=== PATIENT | female | born 1965 | race Caucasian/White ===

== ENCOUNTER 2018-01-18 12:43 | Emergency (ER) | payer OTHER ==
[~2018-01-18] VITALS: Ht 160 cm; Wt 88.5 kg
[2018-01-18] MEDS ORDERED: Cleocin HCl300 MG PO (13:03)
== END 2018-01-18 13:04 | disposition home or self-care (01) ==
LOC: ER 12:43
DX: K02.9 Dental caries, unspecified (principal); F17.200 Nicotine dependence, unspecified, uncomplicated
CPT/HCPCS: 99282

== ENCOUNTER → 2019-03-12 | Outpatient (CLI) | payer OTHER ==
[~2019-03-12] MED LIST: Cleocin HCl300 MG PO
[2019-03-12 16:08] LABS: Source, Urine Clean Catch
[2019-03-12 16:43] LABS: Bilirubin, Urine Neg (Neg); Blood, Urine 1+ (Neg); Glucose Qualitative, Urine Neg (Neg); Ketones, Urine Neg (Neg); Leukocyte Esterase, Urine 3+ (Neg); Nitrite, Urine Neg (Neg); Protein, Urine Neg (Neg); Specific Gravity, Urine 1.005 (1.003-1.022); Urobilinogen, Urine NORM (Normal)
[2019-03-12 16:56] LABS: Appearance, Urine Clear (Clear); Color, Urine Yellow (P-Yellow)
[2019-03-12 17:02] LABS: Squamous Epithelial Cells Few /hpf (Few)
[2019-03-12 17:03] LABS: Bacteria Few /hpf
== END | disposition home or self-care (01) ==
LOC: LAB 16:05 → LAB SHORT 16:05
PROVIDERS: Nurse Practitioner Family
DX: N39.0 Urinary tract infection, site not specified (principal)
CPT/HCPCS: 81001; 87086

== ENCOUNTER → 2019-05-12 | Outpatient (CLI) | payer OTHER | END | disposition home or self-care (01) | LOC: LAB SHORT 18:38 → LAB 18:38 | DX: N39.0 Urinary tract infection, site not specified (principal) | CPT/HCPCS: 87086 ==

== ENCOUNTER 2019-05-19 15:00 | Emergency (ER) | payer OTHER ==
[~2019-05-19] VITALS: Ht 160 cm; Wt 95.9 kg
[2019-05-19 16:13] LABS: Source, Urine Clean Catch
[2019-05-19 16:16] LABS: Bilirubin, Urine Neg (Neg); Blood, Urine 1+ (Neg); Glucose Qualitative, Urine Neg (Neg); Ketones, Urine Neg (Neg); Leukocyte Esterase, Urine 2+ (Neg); Nitrite, Urine Neg (Neg); Protein, Urine Neg (Neg); Urobilinogen, Urine NORM (Normal)
[2019-05-19 16:24] LABS: BASOPHILS ABSOLUTE AUTO 0.05 K/mm3 (0.00-0.23); BASOPHILS PERCENT AUTO 0 % (0-2); EOSINOPHILS ABSOLUTE AUTO 0.19 K/mm3 (0.00-0.68); EOSINOPHILS PERCENT AUTO 2 % (0-6); Hematocrit 40.7 % (33.0-51.0); Hemoglobin 13.3 g/dL (11.5-16.0); IMMATURE GRAN ABSOLUTE AUTO 0.04 K/mm3 (0.00-0.10); IMMATURE GRAN PERCENT AUTO 0 % (0-1); LYMPHOCYTES ABSOLUTE AUTO 3.86 K/mm3 (0.84-5.20); LYMPHOCYTES PERCENT AUTO 34 % (21-46); MONOCYTES ABSOLUTE AUTO 0.68 K/mm3 (0.16-1.47); MONOCYTES PERCENT AUTO 6 % (4-13); Mean Corpuscular HGB 30.2 pg (26.0-34.0); Mean Corpuscular HGB Conc 32.7 g/dL (31.5-36.5); Mean Corpuscular Volume 93 fL (80-100); Mean Platelet Volume 9.4 fL (9.1-12.4); NEUTROPHILS PERCENT AUTO 57 % (41-73); Platelet Count 399 K/mm3 (150-400); RDW Coefficient Variation 11.7 % (11.7-14.2); RDW Standard Deviation 39.7 fL (35.1-46.3); White Blood Cell Count 11.32 K/mm3 (4.00-11.30)
[2019-05-19 16:27] LABS: Appearance, Urine Clear (Clear); Color, Urine Yellow (P-Yellow)
[2019-05-19 16:32] LABS: Bacteria Few /hpf; Red Blood Cells, Urine 0-2 /hpf (0-2); Squamous Epithelial Cells Few /hpf (Few)
[2019-05-19 16:42] LABS: Alanine Aminotransfer (ALT/SGP 27 U/L (12-78); Albumin, Blood 3.2 g/dL (3.4-5.0); Albumin/Globulin Ratio 0.8 (0.8-1.8); Alk Phos 73 U/L (50-136); Anion Gap 7 mmol/L (6-16); Aspartate Aminotrans (AST/SGOT 11 U/L (12-37); Bilirubin, Total 0.2 mg/dL (0.1-1.0); Blood Urea Nitrogen 12 mg/dL (8-24); Bun/Creatinine Ratio 19.1 (12.0-20.0); CO2, Blood 26 mmol/L (21-32); Chloride, Blood 108 mmol/L (98-108); Creatinine, Blood 0.63 mg/dL (0.40-1.00); Glomerular Filtration Rate >60 (60-); Glucose, Blood 120 mg/dL (70-99); Potassium, Blood 3.5 mmol/L (3.5-5.5); Sodium, Blood 141 mmol/L (136-145); Total Protein, Blood 7.2 g/dL (6.4-8.2)
[2019-05-19] MEDS ORDERED: Flagyl500 MG PO (20:35)
[2019-05-19] MEDS ORDERED: Cipro500 MG PO (20:35)
[2019-05-19] MEDS ORDERED: ONDA4ODT MM (20:35)
== END 2019-05-19 20:46 | disposition home or self-care (01) ==
LOC: ER 15:00
PROVIDERS: Physician Assistant
DX: K57.32 Diverticulitis of large intestine without perforation or abscess without bleeding (principal); R91.1 Solitary pulmonary nodule; I10 Essential (primary) hypertension; F17.210 Nicotine dependence, cigarettes, uncomplicated
CPT/HCPCS: 36415; 74176; 80053; 81001; 83690; 85025; 87086; 96360; 99284-25; A9270-GY; J7030

== ENCOUNTER → 2019-05-20 | Outpatient (CLI) | payer OTHER ==
[~2019-05-20] MED LIST changes: +Cipro500 MG PO; +Flagyl500 MG PO; +ONDA4ODT MM
== END | disposition home or self-care (01) ==
LOC: LAB 08:41 → LAB SHORT 08:41
DX: R19.7 Diarrhea, unspecified (principal)
CPT/HCPCS: 87493

== ENCOUNTER 2019-06-18 13:52 | Inpatient (IN) | payer OTHER ==
[~2019-06-18] VITALS: Ht 162.6 cm; Wt 88.2 kg
[2019-06-18 14:44] LABS: Source, Urine Clean Catch
[2019-06-18 14:49] LABS: BASOPHILS ABSOLUTE AUTO 0.05 K/mm3 (0.00-0.23); BASOPHILS PERCENT AUTO 1 % (0-2); EOSINOPHILS ABSOLUTE AUTO 0.17 K/mm3 (0.00-0.68); EOSINOPHILS PERCENT AUTO 2 % (0-6); Hematocrit 42.4 % (33.0-51.0); Hemoglobin 13.9 g/dL (11.5-16.0); IMMATURE GRAN ABSOLUTE AUTO 0.04 K/mm3 (0.00-0.10); IMMATURE GRAN PERCENT AUTO 0 % (0-1); LYMPHOCYTES ABSOLUTE AUTO 3.04 K/mm3 (0.84-5.20); LYMPHOCYTES PERCENT AUTO 31 % (21-46); MONOCYTES ABSOLUTE AUTO 0.66 K/mm3 (0.16-1.47); MONOCYTES PERCENT AUTO 7 % (4-13); Mean Corpuscular HGB 29.8 pg (26.0-34.0); Mean Corpuscular HGB Conc 32.8 g/dL (31.5-36.5); Mean Corpuscular Volume 91 fL (80-100); Mean Platelet Volume 9.3 fL (9.1-12.4); NEUTROPHILS ABSOLUTE AUTO 5.93 K/mm3 (1.96-9.15); NEUTROPHILS PERCENT AUTO 60 % (41-73); Platelet Count 394 K/mm3 (150-400); RDW Coefficient Variation 11.9 % (11.7-14.2); RDW Standard Deviation 39.4 fL (35.1-46.3); Red Blood Cell Count 4.67 M/mm3 (3.80-5.20); White Blood Cell Count 9.89 K/mm3 (4.00-11.30)
[2019-06-18 14:52] LABS: Bilirubin, Urine Neg (Neg); Blood, Urine 1+ (Neg); Glucose Qualitative, Urine Neg (Neg); Ketones, Urine Neg (Neg); Leukocyte Esterase, Urine Neg (Neg); Nitrite, Urine Neg (Neg); Protein, Urine Neg (Neg); Specific Gravity, Urine 1.005 (1.003-1.022); Urobilinogen, Urine NORM (Normal)
[2019-06-18 14:55] LABS: Appearance, Urine Clear (Clear); Color, Urine Yellow (P-Yellow)
[2019-06-18 15:08] LABS: Alanine Aminotransfer (ALT/SGP 30 U/L (12-78); Albumin, Blood 3.5 g/dL (3.4-5.0); Albumin/Globulin Ratio 0.9 (0.8-1.8); Alk Phos 79 U/L (50-136); Anion Gap 6 mmol/L (6-16); Aspartate Aminotrans (AST/SGOT 22 U/L (12-37); Bilirubin, Total 0.4 mg/dL (0.1-1.0); Blood Urea Nitrogen 8 mg/dL (8-24); CO2, Blood 26 mmol/L (21-32); Calcium, Blood 9.2 mg/dL (8.5-10.1); Chloride, Blood 106 mmol/L (98-108); Creatinine, Blood 0.57 mg/dL (0.40-1.00); Globulin, Blood 4.1 g/dL (2.2-4.0); Glomerular Filtration Rate >60 (60-); Glucose, Blood 90 mg/dL (70-99); Potassium, Blood 3.7 mmol/L (3.5-5.5); Sodium, Blood 138 mmol/L (136-145); Total Protein, Blood 7.6 g/dL (6.4-8.2)
[2019-06-18 15:08] LABS: Bacteria Few /hpf; Red Blood Cells, Urine 0-2 /hpf (0-2); Squamous Epithelial Cells Few /hpf (Few); White Blood Cells, Urine Not Seen /hpf (0-5)
--- NOTE | 2019-06-18 19:18 | NUR ---
ADMISSION: REPORT RECEIVED FROM ED RN CATHIE. PT TO UNIT AT 1735. PT WALKED FROM RERIE TO BED. UPON ASSESSMENT PT IS IN NO VISABLE DISTRESS, VSS,A/O. REPORTS "SOME PAIN" WILL MONITOR.
[2019-06-19 04:40] LABS: BASOPHILS ABSOLUTE AUTO 0.05 K/mm3 (0.00-0.23); BASOPHILS PERCENT AUTO 1 % (0-2); EOSINOPHILS ABSOLUTE AUTO 0.18 K/mm3 (0.00-0.68); EOSINOPHILS PERCENT AUTO 3 % (0-6); Hematocrit 41.2 % (33.0-51.0); Hemoglobin 13.5 g/dL (11.5-16.0); IMMATURE GRAN ABSOLUTE AUTO 0.02 K/mm3 (0.00-0.10); IMMATURE GRAN PERCENT AUTO 0 % (0-1); LYMPHOCYTES ABSOLUTE AUTO 2.52 K/mm3 (0.84-5.20); LYMPHOCYTES PERCENT AUTO 35 % (21-46); MONOCYTES ABSOLUTE AUTO 0.44 K/mm3 (0.16-1.47); MONOCYTES PERCENT AUTO 6 % (4-13); Mean Corpuscular HGB 29.8 pg (26.0-34.0); Mean Corpuscular HGB Conc 32.8 g/dL (31.5-36.5); Mean Corpuscular Volume 91 fL (80-100); Mean Platelet Volume 9.2 fL (9.1-12.4); NEUTROPHILS ABSOLUTE AUTO 3.95 K/mm3 (1.96-9.15); NEUTROPHILS PERCENT AUTO 55 % (41-73); Platelet Count 355 K/mm3 (150-400); RDW Coefficient Variation 11.9 % (11.7-14.2); RDW Standard Deviation 39.9 fL (35.1-46.3); Red Blood Cell Count 4.53 M/mm3 (3.80-5.20); White Blood Cell Count 7.16 K/mm3 (4.00-11.30)
[2019-06-19 05:00] LABS: Anion Gap 6 mmol/L (6-16); Blood Urea Nitrogen 8 mg/dL (8-24); Bun/Creatinine Ratio 12.2 (12.0-20.0); CO2, Blood 26 mmol/L (21-32); Calcium, Blood 9.1 mg/dL (8.5-10.1); Chloride, Blood 110 mmol/L (98-108); Creatinine, Blood 0.66 mg/dL (0.40-1.00); Glomerular Filtration Rate >60 (60-); Glucose, Blood 92 mg/dL (70-99); Sodium, Blood 142 mmol/L (136-145)
--- NOTE | 2019-06-19 05:39 | NUR ---
SHIFT SUMMARY NO ACUTE CHANGES OVERNIGHT. NPO. HAD SOME NAUSEA AT START OF SHIFT THAT WAS RESOLVED BY IV ZOFRAN. NO N/V SINCE. PT IS PASSING GAS, NO BM TONIGHT. PT REPORTS MILD ABD PAIN BUT DENIES PAIN MEDS D.T HX OF OPIOID ADDICTION AND NOT WANTING TO "GO DOWN THAT PATH AGAIN". NS RUNNING @ 100 ML/HR. IV ZOSYN ADMINISTERED PER EMAR. NO OTHER CHANGES. WILL CONT TO MONITOR AND PROVIDE CARE UNTIL PRESUMED BY ONCOMING RN.
--- NOTE | 2019-06-19 15:35 | NUR ---
URINATION PATIENT TELLS ME SHE HAS "BUBBLES IN HER URINE" WHEN VOIDS. PATIENT STATES SHE HAD TOLD DR MEDRANO THIS MORNING WHEN HE SAW HER THAT SHE WAS HAVING THIS. PATIENT DENIES PAIN WITH VOIDING
--- NOTE | 2019-06-19 18:14 | NUR ---
SUMMARY PATIENT REPORTS CRAMPING ABD PAIN, HAS DECLINED PAIN MEDS. PATIENT STATES EXPLOSIVE FLATUS AND SMALL AMOUNT LIQUID STOOL AFTER PO INTAKE AT [facility]. PATIENT CLARIFIED THAT SHE HAS NOT HAD AIR BUBBLES IN HER URINE TODAY BUT WAS HAVING LAST WEEK AT TIMES. PATIENT USING PHONE TO LOOK UP INFO ON DIVERTICULITIS .
--- NOTE | 2019-06-20 01:58 | NUR ---
ALYSSA HAS BEEN UNABLE TO REST COMFORTABLY DUE TO HER CHRONIC BACK PAIN. THE ADDITION OF EGG CRATE TO HER BED DID NOT PROVIDE RELIEF. SHE REPORTS THAT THE AIR BED HAS PROVIDED A SIGNIFICANT AMOUNT OF RELIEF AND FEELS THAT SHE WILL BE ABLE TO SLEEP.
--- NOTE | 2019-06-20 04:43 | NUR ---
SHIFT SUMMARY: ALYSSA HAS BEEN ABLE TO REST COMFORTABLY AFTER SWITCHING TO AN AIR BED. SHE SUFFERS FROM CHRONIC BACK PAIN WHICH WAS EXACERBATED BY THE REGULAR HOSPITAL BED. SHE IS A&OX4, ABLE TO MAKE HER NEEDS KNOWN. SHE IS INDEPENDENT IN THE ROOM, USING THE BATHROOM WITHOUT DIFFICULTY. SHE IS TOLERATING THE FULL LIQUID DIET WELL. SHE STATES THAT HER PAIN IS TOLERABLE BUT THAT IT DOES INCREASE WHEN GAS IS MOVING PAST THE DIVERTICULI. SHE STATES THAT HER PAIN IS WORSE IN THE LLQ. SHE IS LYING COMFORTABLY IN BED WITH HER CALL LIGHT IN REACH.
--- NOTE | 2019-06-20 16:14 | NUR ---
SHIFT SUMMARY PT HAS DONE WELL THIS SHIFT. NO ACUTE CHANGES. PLAN IS TO CONTINUE WITH IV ABX.
--- NOTE | 2019-06-21 04:57 | NUR ---
SHIFT SUMMARY PATIENT SLEPT WELL UNTIL 2AM, WHEN SHE GOT UP TO BR. SHE HAS HAD MODERATE AMOUNT OF PAIN IN HER ABD, HOWEVER HER CHRONIC BACK PAIN HAS BEEN MORE OF AN ISSUE, MEDICATED WITH TORODOL Q 6 HOURS PRN. sHE STATED THAT SHE HAS HAD 4 BMS THIS AM, ALL ARE DIARRHEA. INDEPENDENT IN ROOM. USES CALL LIGHT. nO ACUTE CHANGES.
--- NOTE | 2019-06-21 18:13 | NUR ---
SHIFT SUMMARY NO ACUTE CHANGES THROUGH THE SHIFT. PT IS INDEPENDENT IN THE ROOM. TOLERATING PO INTAKE, PASSING FLATUS & STOOL. PT WAS ADVANCED TO A REGULAR DIET THIS EVENING. PT WAS ENC TO TAKE IT SLOW. PT EDUCATION WAS PROVIDED. ABX & FLUIDS INFUSED PER EMAR. TORADOL HAS BEEN GIVEN PER PT REQUEST FOR PAIN. CALL LIGHT IN REACH. TM
--- NOTE | 2019-06-22 05:54 | NUR ---
SHIFT SUMMARY: ALYSSA RESTED COMFORTABLY FOR THE VAST MAJORITY OF THE NIGHT. SHE IS ANXIOUS TO GO HOME TODAY. SHE REPORTS PASSING FLATUS AND LIQUID STOOL. SHE REPORTS THAT THE AIR BED HAS SIGNIFICANTLY IMPROVED HER BACK PAIN. SHE IS INDEPENDENT IN THE ROOM. SHE IS TOLERATING A REGULAR DIET WITHOUT ANY NAUSEA OR VOMITING.
--- NOTE | 2019-06-22 08:40 | NUR ---
AMBUALTING IN ROOM, REPORTS HAVING DIARRHEA, STATES TOLERATING DIET WELL, DENIES ANY PAIN OR ANY OTHER DISCOMFORT, ANXIOUS TO GO HOME.
[2019-06-22] MEDS ORDERED: METR500 PO (09:58)
[2019-06-22] MEDS ORDERED: AMOCLA875 PO (09:58)
== END 2019-06-22 10:16 | disposition home or self-care (01) | DRG 392 ==
LOC: ER 13:52 → MEDS 15:28 → SURS 15:28
PROVIDERS: Physician Assistant; ADMIT Surgery
DX: K57.20 Diverticulitis of large intestine with perforation and abscess without bleeding (principal); N32.1 Vesicointestinal fistula; L03.311 Cellulitis of abdominal wall; F17.200 Nicotine dependence, unspecified, uncomplicated
CPT/HCPCS: 36415; 74177; 80048; 80053; 80061; 81001; 82565; 83690; 84520; 85025; 86803; 87086; 99284; J1885; J2543; J7030; Q9967

== ENCOUNTER 2022-07-13 11:00 | Emergency (ER) | payer OTHER ==
[~2022-07-13] VITALS: Ht 160 cm; Wt 88.0 kg
[~2022-07-13 11:00] MED LIST changes: +ALPR.25; +AMLO10; +AMOCLA875 PO; +CARV25; +ESCI20; +LOSARTAN POTAS100 MG; +METR500 PO; +MOTION RELIEF25 MG; +PROM25; +Pravachol40 MG
[2022-07-13 11:34] LABS: BASOPHILS ABSOLUTE AUTO 0.07 K/mm3 (0.00-0.23); BASOPHILS PERCENT AUTO 1 % (0-2); EOSINOPHILS ABSOLUTE AUTO 0.15 K/mm3 (0.00-0.68); EOSINOPHILS PERCENT AUTO 1 % (0-6); Hematocrit 44.8 % (33.0-51.0); IMMATURE GRAN ABSOLUTE AUTO 0.05 K/mm3 (0.00-0.10); IMMATURE GRAN PERCENT AUTO 0 % (0-1); LYMPHOCYTES ABSOLUTE AUTO 3.58 K/mm3 (0.84-5.20); LYMPHOCYTES PERCENT AUTO 30 % (21-46); MONOCYTES ABSOLUTE AUTO 0.66 K/mm3 (0.16-1.47); MONOCYTES PERCENT AUTO 6 % (4-13); Mean Corpuscular HGB 30.4 pg (26.0-34.0); Mean Corpuscular HGB Conc 33.5 g/dL (31.5-36.5); Mean Corpuscular Volume 91 fL (80-100); Mean Platelet Volume 9.7 fL (9.1-12.4); NEUTROPHILS ABSOLUTE AUTO 7.31 K/mm3 (1.96-9.15); NEUTROPHILS PERCENT AUTO 62 % (41-73); Platelet Count 302 K/mm3 (150-400); RDW Coefficient Variation 12.3 % (11.7-14.2); RDW Standard Deviation 40.8 fL (35.1-46.3); Red Blood Cell Count 4.94 M/mm3 (3.80-5.20); White Blood Cell Count 11.82 K/mm3 (4.00-11.30)
[2022-07-13 12:14] LABS: Albumin, Blood 3.9 g/dL (3.4-5.0); Bilirubin, Total 0.5 mg/dL (0.1-1.0); Bun/Creatinine Ratio 11.8 (12.0-20.0); Calcium, Blood 9.4 mg/dL (8.5-10.1); Creatinine, Blood 0.76 mg/dL (0.40-1.00); Globulin, Blood 3.8 g/dL (2.2-4.0); Total Protein, Blood 7.7 g/dL (6.4-8.2)
[2022-07-13 12:16] LABS: Source, Urine Clean Catch
[2022-07-13 12:19] LABS: Appearance, Urine Clear (Clear); Bilirubin, Urine Neg (Neg); Blood, Urine Neg (Neg); Color, Urine Yellow (P-Yellow); Glucose Qualitative, Urine Neg (Neg); Ketones, Urine Neg (Neg); Leukocyte Esterase, Urine Neg (Neg); Nitrite, Urine Neg (Neg); Protein, Urine Neg (Neg); Urobilinogen, Urine NORM (Normal)
[2022-07-13] MEDS ORDERED: AMOCLA875 PO (13:32)
[2022-07-13] MEDS ORDERED: Flagyl500 MG PO (13:32)
== END 2022-07-13 13:40 | disposition home or self-care (01) ==
LOC: ER 11:00
PROVIDERS: Physician Assistant
DX: K57.32 Diverticulitis of large intestine without perforation or abscess without bleeding (principal); Z91.041 Radiographic dye allergy status; Z88.5 Allergy status to narcotic agent; Z87.891 Personal history of nicotine dependence
CPT/HCPCS: 36415; 74177; 80053; 81003; 85025; A9270; Q9967

== ENCOUNTER 2023-12-26 07:24 | Emergency (ER) | payer OTHER ==
[~2023-12-26] VITALS: Ht 160 cm; Wt 88.0 kg
[2023-12-26 07:40] VITALS: BP 197/110
[2023-12-26] MEDS ORDERED: Ondansetron HCl 2 MG / ML 2ML Vial IV ONE (07:45)
[2023-12-26] MEDS ORDERED: NS 1,000 ML IV SCH (07:45)
[2023-12-26] MEDS ORDERED: Ketorolac Tromethamine 30mg Vial IV ONE (07:45)
[2023-12-26 07:50] LABS: Source, Urine Clean Catch
[2023-12-26 07:57] LABS: Bilirubin, Urine Neg (Neg); Blood, Urine 3+ (Neg); Glucose Qualitative, Urine Neg (Neg); Ketones, Urine 2+ (Neg); Leukocyte Esterase, Urine Neg (Neg); Nitrite, Urine Neg (Neg); Protein, Urine Neg (Neg); Specific Gravity, Urine 1.015 (1.003-1.022); Urobilinogen, Urine NORM (Normal)
[2023-12-26 08:00] LABS: BASOPHILS ABSOLUTE AUTO 0.07 K/mm3 (0.00-0.23); BASOPHILS PERCENT AUTO 1 % (0-2); EOSINOPHILS ABSOLUTE AUTO 0.15 K/mm3 (0.00-0.68); EOSINOPHILS PERCENT AUTO 1 % (0-6); Hematocrit 46.3 % (33.0-51.0); Hemoglobin 15.5 g/dL (11.5-16.0); IMMATURE GRAN ABSOLUTE AUTO 0.04 K/mm3 (0.00-0.10); IMMATURE GRAN PERCENT AUTO 0 % (0-1); LYMPHOCYTES ABSOLUTE AUTO 2.78 K/mm3 (0.84-5.20); LYMPHOCYTES PERCENT AUTO 27 % (21-46); MONOCYTES PERCENT AUTO 6 % (4-13); Mean Corpuscular HGB Conc 33.5 g/dL (31.5-36.5); Mean Corpuscular Volume 90 fL (80-100); Mean Platelet Volume 9.6 fL (9.1-12.4); NEUTROPHILS ABSOLUTE AUTO 6.85 K/mm3 (1.96-9.15); NEUTROPHILS PERCENT AUTO 65 % (41-73); Platelet Count 293 K/mm3 (150-400); RDW Coefficient Variation 12.4 % (11.7-14.2); RDW Standard Deviation 41.1 fL (35.1-46.3); Red Blood Cell Count 5.16 M/mm3 (3.80-5.20); White Blood Cell Count 10.49 K/mm3 (4.00-11.30)
[2023-12-26] MEDS ORDERED: HyDROXyzine HCl 25 MG Tab PO ONE (08:05)
[2023-12-26 08:15] LABS: Appearance, Urine Clear (Clear); Color, Urine Yellow (P-Yellow)
[2023-12-26 08:17] LABS: Bacteria Few /hpf; Squamous Epithelial Cells Few /hpf (Few); White Blood Cells, Urine 0-2 /hpf (0-5)
[2023-12-26 08:26] LABS: Albumin, Blood 3.9 g/dL (3.4-5.0); Bilirubin, Direct 0.1 mg/dL (0.0-0.3); Bilirubin, Indirect 0.4 mg/dL (0.1-0.7); Bilirubin, Total 0.5 mg/dL (0.1-1.0); Bun/Creatinine Ratio 23.5 (12.0-20.0); Calcium, Blood 9.3 mg/dL (8.5-10.1); Creatinine, Blood 0.64 mg/dL (0.40-1.00); Potassium, Blood 4.1 mmol/L (3.5-5.5); Total Protein, Blood 7.9 g/dL (6.4-8.2)
[2023-12-26] MEDS ORDERED: ONDA4ODT MM (09:32)
== END 2023-12-26 09:54 | disposition home or self-care (01) ==
LOC: ER 07:24
PROVIDERS: Student in an Organized Health Care Education/Training Program
DX: K52.9 Noninfective gastroenteritis and colitis, unspecified (principal); I10 Essential (primary) hypertension; F41.9 Anxiety disorder, unspecified; F43.10 Post-traumatic stress disorder, unspecified; E78.5 Hyperlipidemia, unspecified; Z87.891 Personal history of nicotine dependence; Z79.899 Other long term (current) drug therapy; Z91.041 Radiographic dye allergy status; Z88.5 Allergy status to narcotic agent
CPT/HCPCS: 74177; 80048; 80076; 81001; 83690; 85025; 96361; 96374-59; 96375; 99284-25; A9270; J1885; J2405; J7030; Q9967